=== PATIENT | female | born 1995 | race Caucasian/White ===

== ENCOUNTER 2020-08-27 15:42 | Observation (INO) ==
--- NOTE | 2020-08-27 16:27 | History & Physical Report ---
Date of Service August 27, 2020 Assessment & Plan (1) Vaginal bleeding in : (2) 30 weeks gestation of : no active bleeding noted but did have episode, ? etiology. so far no evidence of labor. placentation normal on ernie us. possible chronic abruption? rec monitoring at least up to 4hr to watch bleeding and baby. po hydrate. reviewed with her possible causes, will rec growth us with next visit. rh pos. cont evaluation. 20 min at bedside in exam and discussion of finding and plan. History of Present Illness Chief Complaint: vaginal bleeding Primary Care Provider: Nallely Ji MD 25yo at 31 1/7wks emily presents to L&D from her work with onset of vaginal bleeding. Apparently she was at work and went to BR and that's when she noticed her pantyliner with bright red blood. Called and advised to come in. New pad on arrival with 50cent size bright red blood spot. She denies pain or rom. +FM. She denies trauma to her abdomen, urinary sx or constipation. She is sure it is vaginal. No recent intercourse. RH pos. Was seen on 08/25 with similar sx and evaluated in L&D, no blood seen in vault. That was onset also of painless vaginal bleeding. She did have ernie us with us and placenta was anterior. PNC c/b 1. anxiety/depression on zoloft PNL RH pos, [place] Allergies Allergy/AdvReac Type Severity Reaction Status Date / Time No Known Allergies Allergy Verified 08/25/20 10:02 Home Medications Home Medications Medication Instructions Recorded Confirmed Type prenat.vits,wesley,toh-evux-bnjna 1 tab PO DAILY 05/08/19 08/25/20 History sertraline 50 mg tablet 50 mg PO DAILY #90 tab 03/10/20 08/25/20 Rx simethicone 125 mg capsule 125 mg PO DAILY PRN 07/15/20 08/25/20 History diphenhydramine HCl 25 mg PO HS PRN 08/25/20 08/25/20 History Patient History Medical History (Updated 08/27/20 @ 16:25 by Susan Huynh MD, FACOG) Abnormal uterine bleeding (AUB) Acid reflux disease Anxiety Depression Exposure to COVID-19 virus Hx of varicella Insomnia Migraine Surgical History H/O myringotomy Family History Mother Diabetes Father ADHD Brother ADHD Brother No problems noted. 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 no vaginal itching or abnormal discharge prior to this bleeding. Physical Exam Constitutional: WD/WN, vitals as above Gastrointestinal (Abdomen): Percussion/Palpation: abdomen soft (gravid); abdomen nontender Neurologic: grossly normal Psychiatric: A+Ox3, euthymic affect Genitourinary: Manual OB Exam: + cervical dilation (visually closed, palpably closed. ), + cervical effacement (long) and + station high OB Exam Monitor Tracing: + external FHT monitor used (120 mod variability, reactive. ), + external uterine monitor used (no ctx), + category I and + normal FHT variability SSE no active bleeding, cx visually closed. maroon blood in vault with mucus. Results & Data ([facility]) Vital Signs (Past 12 Hours) Vital Signs Pulse BP 08/27/20 15:48 88 123/73 Coding Level of Care Code None Diagnoses Vaginal bleeding in O46.90 30 weeks gestation of Z3A.30 Comment will plan billing with next note.
[2020-08-27 17:26] LABS: Basophils # (auto) 0.01 K/uL (0-0.2); Basophils % (auto) 0.1 %; Eosinophils # (auto) 0.06 K/uL (0-0.5); Eosinophils % (auto) 0.6 %; Hematocrit (blood only) 32.9 % (37-47); Hemoglobin 11.1 g/dL (12.0-16.0); Immature Granulocytes # (auto) 0.15 K/uL (0.00-0.02); Immature Granulocytes % (auto) 1.5 %; Lymphocytes # (auto) 1.32 K/uL (1.2-3.4); Mean Corpuscular Hemoglobin 31.3 pg (25-34); Mean Corpuscular Hgb Conc 33.7 g/dL (32-36); Mean Corpuscular Volume 92.7 fL (80-100); Mean Platelet Volume 11.3 fL (7.4-10.4); Monocytes # (auto) 0.63 K/uL (0.11-0.59); Monocytes % (auto) 6.2 %; Neutrophils # (auto) 7.95 K/uL (1.4-6.5); Neutrophils % (auto) 78.6 %; Platelet Count 186 K/uL (130-400); RDW Standard Deviation 43.7 fL (36.4-46.3); Red Blood Count 3.55 M/uL (4.2-5.4); White Blood Count 10.12 K/uL (4.8-10.8)
--- NOTE | 2020-08-27 19:04 | Obstetrical Progress Note ---
Date of Service August 27, 2020 Assessment & Plan (1) Vaginal bleeding in : (2) 30 weeks gestation of : no ongoing bleeding. ? chronic abruption. rec u/s and visit, set up for tuesday in office. pelvic rest. etiology uncertain. must return if bleeding worsens. offered to keep in house longer for observation but pt feels bleeding has slowed. will keep for full 4hr and if situation remains same will plan d/c home. nst reactive. additional 10min by bedside. Subjective pt denies ongoing active bleeding, denies pain. feels hungry. Review of Systems Review of Systems: no rom. +FM Physical Exam Constitutional: WD/WN, vitals as above Genitourinary: OB Exam Monitor Tracing: + external FHT monitor used (120 mod variability), + external uterine monitor used (none), + category I and + normal FHT variability reactive Results & Data ([facility]) Vital Signs (Past 12 Hours) Vital Signs Temp Pulse Resp BP 08/27/20 18:30 18 08/27/20 17:41 75 116/67 08/27/20 17:20 88 123/73 08/27/20 15:48 88 123/73 08/27/20 15:46 99.3 F 20 PG Care Time/CCT Total # of Minutes Spent Total Time Spent with Patient: Total time spent is greater than 50% in coordination of care (as documented) at patient's floor/unit and/or counseling patient: Coding Level of Care Code None Diagnoses Vaginal bleeding in O46.90 30 weeks gestation of Z3A.30
[2020-08-27] MEDS ORDERED: ACETAMINOPHEN 325 MG TAB PO PRN (20:46)
[2020-08-27] MEDS ORDERED: SERTRALINE HCL 50 MG TABLET PO ONE (20:46)
--- NOTE | 2020-08-27 20:46 | Obstetrical Progress Note ---
Date of Service August 27, 2020 Assessment & Plan (1) 30 weeks gestation of : (2) Vaginal bleeding in : given repeat episode of bright red bleeding, rec pt stay longer for observation. discussed possible need for mfm consult and discussed possible discussion of steroids. at this point still suspect chronic abruption but just unclear if bleeding will improve or worsen so will watch here overnight. fhts categ 1. no labor. pt questions answered. 45min spent at bedside for last 3 checks. please refer to all notes for evaluation. Subjective notified by nursing that pt did have slowed bleeding that was dark/brown but t hen when up off monitor to go home, had episode of quarter sized red bleeding. no pain. no rom. +FM Review of Systems Review of Systems: per hpi Physical Exam Constitutional: WD/WN, vitals as above Neurologic: grossly normal Psychiatric: A+Ox3, euthymic affect Genitourinary: OB Exam Monitor Tracing: + external FHT monitor used (130 mod variability), + external uterine monitor used (no ctx), + category I and + normal FHT variability Results & Data ([facility]) Vital Signs (Past 12 Hours) Vital Signs Temp Pulse Resp BP 08/27/20 19:01 97.7 F 78 18 112/60 08/27/20 18:30 18 08/27/20 17:41 75 116/67 08/27/20 17:20 88 123/73 08/27/20 15:48 88 123/73 08/27/20 15:46 99.3 F 20 PG Care Time/CCT Total # of Minutes Spent Total Time Spent with Patient: Total time spent is greater than 50% in coordination of care (as documented) at patient's floor/unit and/or counseling patient: Now total time today spent at bedside is 45min Coding Level of Care Code 37456 OBS Care - Level 3 Diagnoses 30 weeks gestation of Z3A.30 Vaginal bleeding in O46.90 CPT Codes Misx Procedure Codes - 44802 NST: 36675 NST ([id number]) 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
--- NOTE | 2020-08-28 07:37 | Obstetrical Progress Note ---
Date of Service August 28, 2020 Assessment & Plan (1) Vaginal bleeding in : (2) 30 weeks gestation of : no further excessive bleeding, some streaking. no evidence of rom, vb. +fm. discussed with pt findings overnight not progressing. rec d/c home and followup in office later today for u/s and md visit. she is agreeable. nst reactive. Admission and Anticipated Discharge Date Admission Date: August 27, 2020 Subjective pt awake this am and working on her computer. slept ok. did not see any increased bleeding. if she wipes when up to BR may see red blood on tp but otherwise brown discharge. no pain. +FM. no ctx. no rom. Review of Systems Review of Systems: per hpi Physical Exam Constitutional: WD/WN, vitals as above Neurologic: grossly normal Psychiatric: A+Ox3, euthymic affect Genitourinary: OB Exam Monitor Tracing: + external FHT monitor used (130 mod variability ), + external uterine monitor used (no ctx), + category I and + normal FHT variability Results & Data ([facility]) Vital Signs (Past 12 Hours) Vital Signs Temp Pulse Resp BP 08/28/20 03:02 98.2 F 81 16 113/56 L 08/27/20 23:03 98.1 F 81 18 102/61 PG Care Time/CCT Total # of Minutes Spent Total Time Spent with Patient: Total time spent is greater than 50% in coordination of care (as documented) at patient's floor/unit and/or counseling patient: Coding Level of Care Code 50218 OBS Care - Discharge Diagnoses Vaginal bleeding in O46.90 30 weeks gestation of Z3A.30 CPT Codes Misx Procedure Codes - 79230 NST: 95105 NST ([id number]) 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
--- NOTE | 2020-08-29 22:05 | Discharge Summary ---
Date of Service Day of admission for observation: August 27, 2020 Day of discharge from observation: August 28, 2020 Admission HPI Per Admitting Provider 25yo at 31 1/7wks emily presents to L&D from her work with onset of vaginal bleeding. Apparently she was at work and went to [place] and that's when she noticed her pantyliner with bright red blood. Called and advised to come in. New pad on arrival with 50 cent size bright red blood spot. She denies pain or rom. +FM. She denies trauma to her abdomen, urinary sx or constipation. She is sure it is vaginal. No recent intercourse. RH pos. Was seen on 08/25 with similar sx and evaluated in L&D, no blood seen in vault. That was onset also of painless vaginal bleeding. She did have anatomy u/s and placenta was anterior. PNC c/b 1. anxiety/depression on zoloft PNL RH pos, [place] Hospital Course (1) 30 weeks gestation of : (2) Vaginal bleeding in : The patient was kept as outpatient for evaluation where no definitive etiology of the bleeding was noted. No evidence of labor or rupture of membranes. heart tones were categ 1. Working diagnosis was likely chronic abruption. At the point patient's bleeding had slowed and was watched for about 4hr, she went to bathroom, and had return of bright red bleeding. At that point felt prudent to monitor patient longer and was kept as observation patient. Overnight monitor showed category 1 status. There were no contractions. The bleeding slowed again and by morning only saw some pink/red with wiping but none on pad. Given no worsening symptoms was stable to discharge home with plan for followup in the office that day for growth u/s. Patient and partner agreeable. Advised on restrictions which was no intercourse/pelvic rest. Otherwise unrestricted. Call with worsening symptoms of bleeding or sign and symptoms of labor. Coding Level of Care Code None Diagnoses 30 weeks gestation of Z3A.30 Vaginal bleeding in O46.90
== END 2020-08-28 07:52 | disposition home or self-care (01) ==
LOC: OPB 15:42 → 4S1 15:42

== ENCOUNTER 2020-10-19 19:58 | Inpatient (IN) ==
[2020-10-19] MEDS ORDERED: OXYTOCIN 30 UNITS/500 ML BAG IV PRN ×2 (21:30→21:41)
[2020-10-19] MEDS: LACTATED RINGER'S 1,000 ML IV PRN (21:34)
--- NOTE | 2020-10-19 21:40 | History & Physical Report ---
Date of Service October 19, 2020 Assessment & Plan (1) : 25 y/o G1 at 38 5/7 wga w/ PROM VSS Fetus cat 1 Labor - will augment with pit, defer cytotec given chronic abruption GBS neg Epidural PRN History of Present Illness Chief Complaint: LOF Primary Care Provider: Nallely Ji MD 25 y/o G1 at 38 5/7 wga w/ FRED 10/28/20 by LMP 01/22/20 c/w 1st tri US presents w/ c/o LOF since this evening. Was in the bathroom and noticed mucous plug fell out, subsequently had large gush of fluid upon standing and has continued leaking since. 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: G1 Menarche 14 Cycles q28 days last pap 12/2018 wnl, no hx abnls no hx STI Allergies Allergy/AdvReac Type Severity Reaction Status Date / Time No Known Allergies Allergy Verified 10/16/20 16:14 Home Medications Medication Instructions Recorded Confirmed Type prenat.vits,wesley,pyd-cjgi-[id number] 1 tab PO DAILY 05/08/19 10/19/20 History sertraline 50 mg tablet 50 mg PO DAILY #90 tab 09/03/20 10/19/20 Rx breast pump #1 ea 09/18/20 10/16/20 Rx breast pump #1 ea 09/18/20 10/16/20 Rx Patient History Medical History (Updated 09/11/20 @ 16:19 by Patricia Carlson MD, FACOG) Abnormal uterine bleeding (AUB) Acid reflux disease Anxiety Depression Exposure to COVID-19 virus Hx of varicella Insomnia Migraine Surgical History H/O myringotomy Family History Mother Diabetes Father ADHD Brother ADHD Brother No problems noted. Denies family history of Ovarian cancer Prostate cancer Myocardial infarction Breast cancer Colorectal cancer Social History Smoking Status: Never smoker Second Hand Exposure: Yes; Hx Alcohol Use: No Hx Substance Use: No Preferred Language: [place] Communication Ability: Effective Visual Impairment: No Limitations Hearing Ability: Normal Student Support Services Director Required: No Beliefs That Will Affect Care: None marital status: marital status details: Mason Schwartz (26) [phone] Current Living Situation: Spouse Current Living Situation Comment: lives with spouse, a cousin lives with them, 4 dogs, 2 cats, no litter 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 Other Information That Helps Us Care for You: No Feels Safe at Home: Yes Safety Concerns: Feels Safe At This Time Childhood Exposure to Second-Hand Smoke: Yes Dental Care, Regularly: Yes Physical Activity Frequency: 3-4 Times per Week Seatbelt Use: always Sunscreen Use: Yes Assistive Devices: None Physical Exam Constitutional: WD/WN, vitals as above no acute distress Respiratory: normal respiratory effort; no respiratory distress and no labored breathing Genitourinary: OB Exam Abdomen: + vertex (by suture confirmed by BSUS) and + estimated weight (7-7.5) Manual OB Exam: + cervical dilation 1 cm, + cervical effacement 70%, + station high and + amniotic fluid (grossly ruptured, +nitrazine by nursing, +pooling) OB Exam Monitor Tracing: + external FHT monitor used, + external uterine monitor used (q5-6min) and + category I (130/mod/+accel/-decel) Results & Data ([facility]) Vital Signs (Past 12 Hours) Vital Signs Temp Pulse Resp BP 10/19/20 20:19 99.0 F 117 H 18 122/79 10/19/20 20:14 99.0 F 18 Laboratory Results OB Labs: Blood Type AB Positive 03/19/20 Antibody Screen NEGATIVE 03/19/20 Hemoglobin 11.1 g/dL (12.0-16.0) L 08/27/20 Hematocrit 32.9 % (37-47) L 08/27/20 Mean Corpuscular Volume 92.7 fL (80-100) 08/27/20 Platelet Count 186 K/uL (130-400) 08/27/20 Rubella IgG Antibody Immune (Immune) 03/19/20 Rapid Plasma Reagin Nonreactive (Nonreactive) 03/19/20 Hepatitis B Surface Antigen Neg (Neg) 03/19/20 HIV (1&2) Ab and P24 Ag, 4th Gener Neg (Neg) 03/19/20 Glucose 1 Hour 50 gm Load 111 mg/dl (70-130) 08/06/20 OB Optional Labs: Chlamydia trachomatis RNA NOT DETECTED (NOT DETECTED) 03/19/20 Neisseria gonorrhoeae RNA NOT DETECTED (NOT DETECTED) 03/19/20 Thyroid Stimulating Hormone (TSH) 1.120 uIu/ml (0.300-4.500) 10/12/19 Labs Reviewed: low risk panorama declined afp/cf/sma GBS neg COVID neg 10/16 Anterior plac Code Status & VTE Plan VTE Prophylaxis Plan VTE Prophylaxis will be ordered: Yes Coding Level of Care Code None Diagnoses Z34.90
[2020-10-19 21:55] LABS: Hematocrit (blood only) 32.4 % (37-47); Mean Corpuscular Hemoglobin 30.4 pg (25-34); Mean Corpuscular Volume 89.5 fL (80-100); Mean Platelet Volume 11.2 fL (7.4-10.4); Platelet Count 202 K/uL (130-400); RDW Coefficient of Variation 13.5 % (11.5-14.5); Red Blood Count 3.62 M/uL (4.2-5.4); White Blood Count 10.22 K/uL (4.8-10.8)
[2020-10-19] MEDS: CALCIUM CARBONATE 500 MG CHEWABLE TAB PO PRN (22:08)
[2020-10-19] MEDS: SERTRALINE HCL 50 MG TABLET PO SCH ×2 (22:45→22:48)
[2020-10-19] MEDS ORDERED: BUTORPHANOL TARTRATE 1 MG/ML VIAL IV STA (23:54)
[2020-10-20] MEDS ORDERED: BUTORPHANOL TARTRATE 1 MG/ML VIAL ONE (00:05)
[2020-10-20] MEDS ORDERED: SODIUM CHLORIDE 0.9% INJ 10 ML VIAL ONE (02:00)
[2020-10-20] MEDS ORDERED: ePHEDrine sulfate 50 MG/ML AMP ONE (02:00)
[2020-10-20] MEDS ORDERED: BUPIVACAINE 0.25% 30 ML VIAL ONE (02:00)
[2020-10-20] MEDS ORDERED: fentaNYL citrate 100 MCG/2 ML VIAL ONE (02:00)
[2020-10-20] MEDS ORDERED: fentaNYL 2MCG/ML ROPIVACAINE 1.25MG/ML 100 ML BAG EPI ONE (02:01)
[2020-10-20] MEDS ORDERED: ePHEDrine sulfate 50 MG/ML AMP IV PRN (02:22)
[2020-10-20] MEDS ORDERED: fentaNYL 2MCG/ML ROPIVACAINE 1.25MG/ML 100 ML BAG EPI PRN (02:22)
[2020-10-20] MEDS ORDERED: NALOXONE HCL 1 MG in SODIUM CHLORIDE 0.9% 1000ML 1,000 ML IV PRN (02:22)
[2020-10-20] MEDS ORDERED: NALOXONE HCL 0.4 MG/1 ML VIAL/CARP IV PRN (02:22)
[2020-10-20] MEDS ORDERED: ONDANSETRON INJ 2 MG/ML 2 ML VIAL IV PRN (02:22)
[2020-10-20] MEDS ORDERED: diphenhydrAMINE 50 MG/ML VIAL IV PRN (02:22)
[2020-10-20] MEDS: LACTATED RINGER'S 1,000 ML IV PRN ×2 (02:23→07:13)
--- NOTE | 2020-10-20 02:25 | Anesthesiology Consultation ---
Date of Service October 20, 2020 Covid 19 negative on 10/16/20. Assessment & Plan Chart Review Chart Review: Patient NOT seen in Pre Admission Testing and Acceptable Risk for Labor Epidural Consults Requested none ASA ASA2 Proposed Anesthesia Anesthesia Type: Labor Epidural and CSE Risk / Benefits Reviewed With: PT / POA / Parent / Guardian, Accepts Plan and Informed Consent Obtained History Height/Weight Height: 5 ft 7 in Weight: 91.172 kg Allergies Allergy/AdvReac Type Severity Reaction Status Date / Time No Known Allergies Allergy Verified 10/16/20 16:14 Medications Home Medications Medication Instructions Recorded Confirmed Last Taken prenat.vits,wesley,yfh-rjji-yosrn 1 tab PO DAILY 05/08/19 10/19/20 10/18/20 sertraline 50 mg tablet 50 mg PO DAILY #90 tab 09/03/20 10/19/20 10/18/20 breast pump #1 ea 09/18/20 10/16/20 Unknown breast pump #1 ea 09/18/20 10/16/20 Unknown Active Medications Generic Name Dose Route Start Last Admin Trade Name Freq PRN Reason Stop Dose Admin Calcium Carbonate 1,500 mg 10/19/20 21:40 10/19/20 22:08 Calcium Carbonate 500 Mg Chewable Tab PO 11/18/20 21:39 1,500 mg Q8 PRN Administration Indigestion Lactated Ringer's 1,000 mls @ 125 mls/hr 10/19/20 21:30 10/20/20 02:23 Lr IV 10/21/20 21:29 999 mls/hr .Q8H PRN Administration L&D Protocol Protocol Oxytocin 30 units in 500 mls @ 13 mls/hr 10/19/20 21:41 10/20/20 01:15 Pitocin IV 10/21/20 21:40 0.78 units/hr .Q24H PRN 13 mls/hr Labor Induction/Augmentation Titration Protocol 0.78 UNITS/HR Sertraline HCl 50 mg 10/20/20 21:00 10/19/20 22:48 Sertraline Hcl 50 Mg Tablet PO 11/19/20 20:59 50 mg QPM MICHELLE Administration NPO Date Last Intake of Fluids: 10/20/20 Time Last Intake of Fluids: 01:00 Date Last Intake of Solids: 10/19/20 Time Last Intake of Solids: 19:00 Past Medical History Medical History Abnormal uterine bleeding (AUB) Acid reflux disease Anxiety Depression Exposure to COVID-19 virus Hx of varicella Insomnia Migraine Exercise / Class Metabolic Activity II 4-5 Yardwork/Stairs/Walk up hill Past Family History Family History Mother Diabetes Father ADHD Brother ADHD Brother No problems noted. Denies family history of Ovarian cancer Prostate cancer Myocardial infarction Breast cancer Colorectal cancer Past Surgical History Surgical History H/O myringotomy Past Anesthesia History No Hx of Anesthesia Complications and No Family Hx of Anesthesia Complications History of PONV No Hx of PONV and No Hx of Motion Sickness Social History Smoking Status: Never smoker Hx Alcohol Use: No Hx Substance Use: No Review of Systems no chest pain or sob Physical Exam Vital Signs Last Vital Signs Temp 37.0 C 10/19/20 22:00 Pulse 88 10/20/20 02:21 Resp 18 10/19/20 20:19 BP 127/79 10/20/20 02:21 Pulse Ox 100 10/20/20 02:20 ENMT Mouth: no TMJ abnormality Thyromental Distance: > or= 3.5 Finger Breadths Mallampati Class: II Neck normal visual inspection Respiratory normal respiratory effort Auscultation: lungs clear to auscultation bilaterally Cardiovascular Rate/Rhythm: regular rate and regular rhythm Musculoskeletal Spine: normal cervical ROM Neurologic moves all extremities Psychiatric Orientation: alert and oriented x 3 Testing Laboratory Results 10/19/20 21:46 Blood Type AB Positive 10/19/20 21:46 Antibody Screen NEGATIVE 10/19/20 21:46
[2020-10-20] MEDS: CALCIUM CARBONATE 500 MG CHEWABLE TAB PO PRN (04:51)
[2020-10-20] MEDS ORDERED: ceFAZolin SPECIAL PROCEDURE STOCK 1 GM ADDVIAL IV ONE (06:19)
[2020-10-20] MEDS ORDERED: ceFAZolin 2000MG 2,000 MG/15 ML SYR IV ONE (06:30)
[2020-10-20] MEDS ORDERED: DIPHTHERIA/TETANUS/PERTUSSIS 0.5 ML SYR/VIAL IM ONE (06:46)
[2020-10-20] MEDS ORDERED: OXYTOCIN 30 UNITS/500 ML BAG IV PRN (06:46)
[2020-10-20] MEDS ORDERED: BENZOCAINE 20% AER SPR 82.5 GM CAN EXT PRN (06:46)
[2020-10-20] MEDS ORDERED: SUPERCREAM 0.870% 15 GM JAR EXT PRN (06:46)
[2020-10-20] MEDS ORDERED: HYDROCORTISONE ACETATE 25 MG SUPP PR PRN (06:46)
[2020-10-20] MEDS ORDERED: bisacodyL 10 MG SUPP PR PRN (06:46)
[2020-10-20] MEDS ORDERED: ceFAZolin 2000MG 2,000 MG/15 ML SYR IV SCH (07:00)
--- NOTE | 2020-10-20 08:07 | Delivery Summary ---
Vaginal Delivery Summary Date of Service October 20, 2020 Vaginal Delivery Summary PREOPERATIVE DIAGNOSIS: 1. Single intrauterine at 38 6/7 weeks gestation 2. Prelabor rupture of membranes 3. Chronic abruption 4. Depression/anxiety POSTOPERATIVE DIAGNOSIS: 1. Single intrauterine at 38 6/7 weeks gestation 2. Prelabor rupture of membranes 3. Chronic abruption 4. Depression/anxiety 5. Delivered PROCEDURE: 1. Normal spontaneous vaginal delivery. 2. Manual removal of placenta SURGEON: Homa Shelton MD ANESTHESIA: Epidural. ESTIMATED BLOOD LOSS: 300 mL FLUIDS: Continuous LR. URINE OUTPUT: None. COMPLICATIONS: None. CONDITION: Stable. INDICATIONS: 25 y/o G1 at 38 6/7 wga w/ FRED 10/28/20 presented with SROM. has been complicated by chronic abruption for which she had been receiving very reassuring testing. Pitocin was initiated for augmentation. She received an epidural for pain control. She then progressed to complete, complete, +2 station and desired to push. FINDINGS: A viable male , weight pending, with Apgars of 8 and 9 at 1 and 5 minutes respectively. SPECIMEN: Placenta OPERATIVE REPORT: The patient progressed to 10 cm, 100% effaced and +2 station, pushed over intact perineum with anesthesia to deliver a viable male , Apgars as above. Head of delivered in PIERO position. Loose nuchal cord was present and delivered through. Body and shoulders were delivered without difficulty. was delivered to nursing staff due to pt emesis. Delayed cord clamping was performed for 60 seconds. Cord was clamped and cut. Placenta was placed on gentle traction and fundal massage was also performed, however did not deliver within anticipated second stage. Placenta was then manually removed due to non-deliverance and it appeared to be removed intact and in its entirety. IV oxytocin and fundal massage were given for excellent hemostasis. Vagina, cervix, perineum, and placenta were inspected. A second degree and R labial lacerations were noted and repaired in the usual fashion using 3-0 and 4-0 vicryl respectively. There was excellent hemostasis. Sponge and needle counts correct x2. No sponges were left behind. Mother and stable in immediate period. Ancef x 1 was given due to manual extraction. [facility] Vaginal Delivery Charge Vaginal Delivery Codes: 43929 global code for the antepartum, delivery, and post-
--- NOTE | 2020-10-20 08:31 | Anesthesia Procedure Note ---
Date of Service October 20, 2020 Anesthesia Post Epidural Note Vital Signs Vital Signs: Temp Pulse Resp BP Pulse Ox 37.1 C 96 H 20 151/83 H 98 10/20/20 07:15 10/20/20 08:17 10/20/20 08:00 10/20/20 08:17 10/20/20 05:36 Notes Mental Status: alert / awake / arousable Nausea / Vomiting: adequately controlled Pain: adequately controlled Airway Patency, RR, SpO2: stable & adequate BP & HR: stable & adequate Hydration State: stable & adequate Neuraxial Anesthesia: was administered and sensory block is resolving Anesthetic Complications: no major complications apparent Epidural: Removed without complications and With tip intact
[2020-10-20] MEDS: ACETAMINOPHEN 325 MG TAB PO PRN ×2 (09:05→19:21)
[2020-10-20] MEDS: PRENATAL VITAMIN 1 TAB PO SCH (09:06)
[2020-10-20] MEDS: FERROUS SULFATE 325 MG TAB PO SCH (09:06)
[2020-10-20] MEDS: DOCUSATE SODIUM 100 MG CAP PO SCH ×2 (09:06→20:07)
[2020-10-20] MEDS: IBUPROFEN 600 MG TAB PO PRN (16:37)
[2020-10-20] MEDS: SERTRALINE HCL 50 MG TABLET PO SCH (20:07)
[2020-10-21] MEDS: IBUPROFEN 600 MG TAB PO PRN ×3 (03:12→20:05)
--- NOTE | 2020-10-21 05:50 | Obstetrical Progress Note ---
Date of Service <Kayden Winchester MD - Last Filed: 10/21/20 07:16> October 21, 2020 Assessment & Plan <Kayden Winchester MD - Last Filed: 10/21/20 07:16> (1) state: 25 y/o PPD1 s/p . AB+. Rubella immune. Stable. - Meeting milestones. Is ambulating, voiding, passing flatus, and tolerating regular diet. No BM yet. - vitals wnl - continue routine care - tentative dispo this evening vs tomorrow AM (2) Placental abruption in third trimester: - s/p manual removal of placenta during delivery - hb 11.0->8.6 10/19 vs today - lochia moderate - check AM CBC Subjective <Kayden Winchester MD - Last Filed: 10/21/20 07:16> Ambulation: ambulating normally Voiding: no voiding problems Passing Gas:: Yes Diet Tolerance:: regular diet Lochia:: Moderate Feeding Type:: breast feeding Current Pain Level(1-10): 4 Doing well. Has 4/10 lower abd pain, Motrin helps. Is , but is unsure about youth counselor regarding pain/discomfort while . Review of Systems Denies fever, chills, sweats Denies shortness of breath, chest pain. Denies dysuria. Denies headache or changes in vision. Denies nausea/vomiting. Denies numbness, tingling, weakness. Physical Exam <Kayden Winchester MD - Last Filed: 10/21/20 07:16> General: Alert, oriented. No acute distress. Cardiac: Regular rate and rhythm, no murmurs/rubs/gallops. Respiratory: Clear to auscultation bilaterally, no wheezes/rales/rhonchi. No respiratory distress. Abdomen: , soft. Mild tenderness left lower quadrant where uterus is. Uterus: Uterine fundus firm, palpable to left of umbilicus. Lower Extremities: No lower extremity edema or swelling. No deep calf pain. Jose's negative bilaterally. Results & Data ([facility]) <Kayden Winchester MD - Last Filed: 10/21/20 07:16> Vital Signs (Past 12 Hours) Vital Signs Temp Pulse Pulse Resp BP Pulse Ox 10/21/20 03:30 36.8 C 83 17 117/78 99 10/20/20 23:10 37.0 C 79 16 116/71 95 10/20/20 19:10 36.8 C 78 16 119/72 99 Medications Administered <Nancy Brennan DO - Last Filed: 10/21/20 08:07> Co-Signing Physician Notes Resident Physician Supervision Note: I was present with Dr. Winchester during the history and exam. I discussed the case with the resident and agree with the findings and plan as documented in the note. Any exceptions or clarifications are listed here: PPD#1 doing well. Anticipate DC home tomorrow. Documented By: Nancy Brennan DO
[2020-10-21 06:33] LABS: Hematocrit (blood only) 26.5 % (37-47); Hemoglobin 8.6 g/dL (12.0-16.0); Mean Corpuscular Hemoglobin 29.7 pg (25-34); Mean Corpuscular Hgb Conc 32.5 g/dL (32-36); Mean Corpuscular Volume 91.4 fL (80-100); Platelet Count 186 K/uL (130-400); RDW Standard Deviation 46.2 fL (36.4-46.3); White Blood Count 11.27 K/uL (4.8-10.8)
[2020-10-21] MEDS: DOCUSATE SODIUM 100 MG CAP PO SCH ×2 (08:48→21:10)
[2020-10-21] MEDS: PRENATAL VITAMIN 1 TAB PO SCH (08:49)
[2020-10-21] MEDS: FERROUS SULFATE 325 MG TAB PO SCH (08:49)
[2020-10-21] MEDS ORDERED: bisacodyL 5 MG TABEC PO SCH (20:00)
[2020-10-21] MEDS: SERTRALINE HCL 50 MG TABLET PO SCH (21:12)
[2020-10-21] MEDS: ACETAMINOPHEN 325 MG TAB PO PRN (23:26)
[2020-10-22] MEDS: IBUPROFEN 600 MG TAB PO PRN (06:12)
--- NOTE | 2020-10-22 06:57 | Obstetrical Progress Note ---
Date of Service <Kayden Winchester MD - Last Filed: 10/22/20 07:19> October 22, 2020 Assessment & Plan <Kayden Winchester MD - Last Filed: 10/22/20 07:19> (1) state: 25 y/o PPD2 s/p . AB+. Rubella immune. Stable. - Meeting milestones. Is ambulating, voiding, passing flatus, and tolerating regular diet. passed BM yesterday - continue routine care - dispo today (2) Placental abruption in third trimester: - s/p manual removal of placenta during delivery - hb 11.0->8.6 10/19 vs yesterday - lochia small, improved today per patient - will prescribe PO iron daily upon d/c Subjective <Kayden Winchester MD - Last Filed: 10/22/20 07:19> Ambulation: ambulating normally Voiding: no voiding problems Passing Gas:: Yes Diet Tolerance:: regular diet Lochia:: Small Feeding Type:: bottle feeding Current Pain Level(1-10): 2 Mild headache. Lower abd discomfort is mild 2/10. Doing well and feels comfortable w/ d/c home today. Review of Systems Denies fever, chills, sweats Denies shortness of breath, chest pain, palpitations. Denies breast pain. Denies dysuria. Denies nausea/vomiting. Denies numbness, tingling, weakness. Physical Exam <Kayden Winchester MD - Last Filed: 10/22/20 07:19> General: Alert, oriented. No acute distress. Cardiac: Regular rate and rhythm, no murmurs/rubs/gallops. Respiratory: Clear to auscultation bilaterally, no wheezes/rales/rhonchi. No respiratory distress. Abdomen: , soft, nontender. Uterus: See attending exam. Lower Extremities: No lower extremity edema or swelling. No deep calf pain. Jose's negative bilaterally. Results & Data ([facility]) <Kayden Winchester MD - Last Filed: 10/22/20 07:19> Vital Signs (Past 12 Hours) Vital Signs Temp Pulse Resp BP 10/21/20 23:15 37.0 C 94 H 18 118/79 10/21/20 22:22 85 124/80 10/21/20 19:55 37.0 C 93 H 18 145/90 H Medications Administered <Wilian Rondon Jr, MD, FACOG - Last Filed: 10/22/20 07:31> Co-Signing Physician Notes Resident Physician Supervision Note: I was present with Dr. Winchester during the history and exam. I discussed the case with the resident and agree with the findings and plan as documented in the note. Any exceptions or clarifications are listed here: Hgb stable, pt desires d/c. Will take po Fe in addition to PNV. D/C instructions given, f/u in 6 weeks for pp check Documented By: Wilian Rondon Jr, MD, FACOG
[2020-10-22] MEDS: FERROUS SULFATE 325 MG TAB PO SCH (08:20)
[2020-10-22] MEDS: DOCUSATE SODIUM 100 MG CAP PO SCH (08:20)
[2020-10-22] MEDS: PRENATAL VITAMIN 1 TAB PO SCH (08:20)
== END 2020-10-22 10:50 | disposition home or self-care (01) | DRG 807 ==
LOC: OPB 19:58 → 4S1 19:59 → 4S2 10-20 09:28

== ENCOUNTER 2022-05-09 14:00 | Inpatient (IN) ==
[2022-05-09] MEDS ORDERED: OXYTOCIN 30 UNITS/500 ML BAG IV PRN ×2 (17:00→20:55)
[2022-05-09] MEDS: LACTATED RINGER'S 1,000 ML IV PRN ×2 (17:15→18:10)
[2022-05-09] MEDS ORDERED: ePHEDrine sulfate 50 MG/ML AMP ONE (17:20)
[2022-05-09] MEDS ORDERED: BUPIVACAINE 0.25% 30 ML VIAL ONE (17:21)
[2022-05-09] MEDS ORDERED: fentaNYL citrate 100 MCG/2 ML VIAL ONE (17:21)
[2022-05-09] MEDS ORDERED: SODIUM CHLORIDE 0.9% INJ 10 ML VIAL ONE (17:21)
[2022-05-09] MEDS ORDERED: fentaNYL 2MCG/ML ROPIVACAINE 1.25MG/ML 100 ML BAG EPI ONE (17:22)
--- NOTE | 2022-05-09 17:32 | Anesthesiology Consultation ---
Date of Service May 09, 2022 Assessment & Plan (1) Encounter for pre-operative examination: Chart Review Chart Review: Acceptable Risk for Labor Epidural History Height/Weight Height: 5 ft 8 in Weight: 91.172 kg Allergies Allergy/AdvReac Type Severity Reaction Status Date / Time No Known Allergies Allergy Verified 05/06/22 16:01 Medications Home Medications Medication Instructions Recorded Confirmed Last Taken prenat.vits,wesley,lmv-[id number] 1 tab PO DAILY 09/16/21 05/09/22 1 Day Ago ~05/08/22 diphenhydramine HCl 50 mg capsule 50 mg PO HS PRN #20 cap 11/19/21 05/09/22 1 Day Ago ([facility]) ~05/08/22 sertraline 50 mg tablet 50 mg PO DAILY #90 tab 03/17/22 05/09/22 1 Day Ago ~05/08/22 Past Medical History Medical History 30 weeks gestation of Abnormal uterine bleeding (AUB) Acid reflux disease Exposure to COVID-19 virus Hx of varicella Insomnia Migraine Placental abruption in third trimester Vaginal bleeding in Past Family History Family History Mother Diabetes Father ADHD Brother ADHD Brother No problems noted. Son No problems noted. Denies family history of Ovarian cancer Prostate cancer Myocardial infarction Breast cancer Colorectal cancer Past Surgical History Surgical History H/O myringotomy Social History Smoking Status: Never smoker Hx Alcohol Use: No Hx Substance Use: No Physical Exam Vital Signs Last Vital Signs Pulse 80 05/09/22 17:27 BP 128/79 05/09/22 17:27
[2022-05-09 17:49] LABS: Hematocrit (blood only) 31.9 % (37-47); Hemoglobin 10.1 g/dL (12.0-16.0); Mean Corpuscular Hemoglobin 26.2 pg (25-34); Mean Corpuscular Volume 82.6 fL (80-100); Mean Platelet Volume 10.4 fL (7.4-10.4); Platelet Count 228 K/uL (130-400); RDW Coefficient of Variation 15.3 % (11.5-14.5); RDW Standard Deviation 45.5 fL (36.4-46.3); Red Blood Count 3.86 M/uL (4.2-5.4); White Blood Count 9.96 K/uL (4.8-10.8)
[2022-05-09 17:50] LABS: Mean Corpuscular Hgb Conc 31.7 g/dL (32-36)
[2022-05-09] MEDS ORDERED: ONDANSETRON INJ 2 MG/ML 2 ML VIAL IV PRN (18:33)
[2022-05-09] MEDS ORDERED: ePHEDrine sulfate 50 MG/ML AMP IV PRN (18:33)
[2022-05-09] MEDS ORDERED: NALOXONE HCL 0.4 MG/1 ML VIAL/CARP IV PRN (18:33)
[2022-05-09] MEDS ORDERED: fentaNYL 2MCG/ML ROPIVACAINE 1.25MG/ML 100 ML BAG EPI PRN (18:33)
[2022-05-09] MEDS ORDERED: NALOXONE HCL 1 MG in SODIUM CHLORIDE 0.9% 1000ML 1,000 ML IV PRN (18:33)
--- NOTE | 2022-05-09 20:38 | Delivery Summary ---
Vaginal Delivery Summary Date of Service May 09, 2022 Vaginal Delivery Summary Continuous vaginal delivery the patient arrived in active labor requested epidural artificial rupture of membranes and shortly after this she was fully dilated and pushed over 1 contraction delivering baby in occiput anterior position clear fluid no nuchal cord gentle traction the baby live vigorous male infant mouth and nares suctioned with bulb no excessive force was used first- degree tear repaired with 3-0 Vicryl placenta removed with gentle traction IV Pitocin started uterine tone improved estimated blood loss 150 mL sponge and instrument counts correct
[2022-05-09] MEDS ORDERED: ACETAMINOPHEN 325 MG TAB PO PRN (20:55)
[2022-05-09] MEDS ORDERED: DIPHTHERIA/TETANUS/PERTUSSIS 0.5 ML SYR/VIAL IM ONE (20:55)
[2022-05-09] MEDS ORDERED: bisacodyL 10 MG SUPP PR PRN (20:55)
[2022-05-09] MEDS ORDERED: HYDROCORTISONE ACETATE 25 MG SUPP PR PRN (20:55)
[2022-05-09] MEDS ORDERED: BENZOCAINE 20% AER SPR 82.5 GM CAN EXT PRN (20:55)
[2022-05-09] MEDS ORDERED: oxyCODONE/ACETAMINOPHEN 5mg/325mg TAB PO PRN (20:55)
--- NOTE | 2022-05-09 21:31 | Anesthesia Procedure Note ---
Date of Service May 09, 2022 Anesthesia Post Epidural Note Vital Signs Vital Signs: Temp Pulse Resp BP Pulse Ox 36.7 C 65 18 130/63 99 05/09/22 20:35 05/09/22 21:21 05/09/22 21:20 05/09/22 21:21 05/09/22 20:37 Pain Intensity Bilateral Abdomen: Pain Intensity: 0 Notes Mental Status: alert / awake / arousable and participated in evaluation Patient Amnestic to Procedure: No Nausea / Vomiting: adequately controlled Pain: adequately controlled Airway Patency, RR, SpO2: stable & adequate BP & HR: stable & adequate Hydration State: stable & adequate Neuraxial Anesthesia: was administered and sensory block is resolving Anesthetic Complications: no major complications apparent and Pt Satisfied with anesthetic care Epidural: Removed without complications and With tip intact
[2022-05-09] MEDS: DOCUSATE SODIUM 100 MG CAP PO SCH (21:44)
[2022-05-09] MEDS: IBUPROFEN 600 MG TAB PO PRN (21:57)
[2022-05-10] MEDS: IBUPROFEN 600 MG TAB PO PRN ×2 (05:34→14:46)
[2022-05-10 07:09] LABS: Hematocrit (blood only) 29.4 % (37-47); Hemoglobin 9.5 g/dL (12.0-16.0); Mean Corpuscular Hemoglobin 26.6 pg (25-34); Mean Corpuscular Hgb Conc 32.3 g/dL (32-36); Mean Corpuscular Volume 82.4 fL (80-100); Mean Platelet Volume 10.7 fL (7.4-10.4); Platelet Count 215 K/uL (130-400); RDW Coefficient of Variation 15.4 % (11.5-14.5); Red Blood Count 3.57 M/uL (4.2-5.4); White Blood Count 10.94 K/uL (4.8-10.8)
--- NOTE | 2022-05-10 07:11 | Obstetrical Progress Note ---
Date of Service May 10, 2022 Assessment & Plan (1) Encounter for supervision of normal in multigravida: PPD 0, cont current care Subjective Ambulation: ambulating normally Voiding: no voiding problems Diet Tolerance:: regular diet Lochia:: Small Results & Data ([facility]) Vital Signs (Past 12 Hours) Vital Signs Temp Pulse Pulse Resp BP BP Pulse Ox 05/10/22 05:23 97.7 F 68 16 127/74 98 05/10/22 00:29 97.9 F 70 16 124/75 98 05/09/22 22:51 81 110/67 05/09/22 22:36 114/73 05/09/22 22:35 81 18 110/67 05/09/22 22:21 126/78 05/09/22 22:06 56 L 131/76 05/09/22 22:05 56 L 18 131/76 05/09/22 21:51 77 130/84 05/09/22 21:36 74 128/63 05/09/22 21:35 77 18 05/09/22 21:21 65 130/63 05/09/22 21:20 65 18 130/63 05/09/22 21:06 71 128/57 L 05/09/22 21:05 65 18 05/09/22 20:51 77 121/57 L 05/09/22 20:50 65 18 130/63 05/09/22 20:37 86 99 05/09/22 20:36 84 116/57 L 90 05/09/22 20:35 98.1 F 65 18 130/63 05/09/22 20:32 83 99 05/09/22 20:29 96 H 153/95 H 05/09/22 20:27 103 H 87 L 05/09/22 20:22 100 H 100 05/09/22 20:17 75 100 05/09/22 20:16 86 88 L 05/09/22 20:14 90 130/79 05/09/22 20:12 71 100 05/09/22 20:07 85 100 05/09/22 20:02 87 100 05/09/22 20:00 18 05/09/22 19:59 72 126/91 05/09/22 19:57 77 100 05/09/22 19:55 98.1 F 05/09/22 19:52 79 100 05/09/22 19:50 98.1 F 18 05/09/22 19:47 83 100 05/09/22 19:45 70 108/58 L 05/09/22 19:42 79 100 05/09/22 19:37 76 100 05/09/22 19:32 73 100 05/09/22 19:30 18 05/09/22 19:29 69 102/59 L 05/09/22 19:27 71 100 05/09/22 19:22 75 100 05/09/22 19:17 83 100 05/09/22 19:14 71 109/65 05/09/22 19:12 73 100
[2022-05-10] MEDS ORDERED: Nursing to Pharmacy Communication SCH (07:30)
[2022-05-10] MEDS ORDERED: PRENATAL VITAMIN 1 TAB PO SCH (08:00)
[2022-05-10] MEDS: DOCUSATE SODIUM 100 MG CAP PO SCH ×2 (08:40→20:36)
[2022-05-10] MEDS ORDERED: SERTRALINE HCL 50 MG TABLET PO SCH ×2 (09:00→20:00)
[2022-05-10] MEDS ORDERED: bisacodyL 5 MG TABEC PO SCH (20:00)
== END 2022-05-10 22:22 | disposition home or self-care (01) | DRG 807 ==
LOC: OPB 14:00 → 4S1 14:01 → 4E2 23:00

== ENCOUNTER 2023-03-16 03:12 | Observation (INO) ==
[2023-03-16 03:37] LABS: Basophils # (auto) 0.05 K/uL (0-0.2); Basophils % (auto) 0.3 %; Eosinophils # (auto) 0.07 K/uL (0-0.50); Eosinophils % (auto) 0.5 %; Hematocrit (blood only) 40.5 % (37.0-47.0); Hemoglobin 13.6 g/dl (12.0-16.0); Immature Granulocytes # (auto) 0.05 K/uL (0.01-0.20); Immature Granulocytes % (auto) 0.3 %; Lymphocytes # (auto) 1.78 K/uL (1.2-3.4); Lymphocytes % (auto) 12.2 %; Mean Corpuscular Hemoglobin 29.6 pg (25.0-34.0); Mean Corpuscular Hgb Conc 33.6 g/dL (32.0-36.0); Mean Corpuscular Volume 88.2 fL (80.0-100.0); Mean Platelet Volume 11.7 fL (9.4-12.4); Monocytes # (auto) 0.65 K/uL (0.11-0.59); Monocytes % (auto) 4.5 %; Neutrophils % (auto) 82.2 %; Platelet Count 208 K/uL (130-400); RDW Coefficient of Variation 12.8 % (11.5-14.5); RDW Standard Deviation 41.1 fL (36.4-46.3); Red Blood Count 4.59 M/uL (4.20-5.40)
[2023-03-16] MEDS ORDERED: ONDANSETRON INJ 2 MG/ML 2 ML VIAL IV STA (03:37)
[2023-03-16] MEDS ORDERED: SODIUM CHLORIDE 0.9% 1000ML 1,000 ML IV SCH (03:45)
[2023-03-16] MEDS: MoRPHine SULFATE 4 MG/ML 1 ML CARP\\VIAL IV PRN ×2 (03:49→09:16)
[2023-03-16 03:50] LABS: Appearance Urine Cloudy (Clear); Bacteria Urine Automated 1+ (Negative); Bilirubin Urine Negative (Negative); Blood Urine Negative (Negative); Color Urine Yellow; Epithelial Cell Urine Auto >30 /lpf (0-5); Glucose Urine UA Negative (Negative); Ketones Urine Negative (Negative); Leukocyte Esterase Urine 3+ (Negative); Nitrite Urine Negative (Negative); Protein Urine Negative (Negative); RBC Urine Automated 0-4 /hpf (0-4); Specific Gravity Urine 1.021 (1.000-1.030); Urobilinogen Urine Negative (Negative); WBC Urine Automated >30 /hpf (0-5)
[2023-03-16 03:52] LABS: Albumin Globulin Ratio 1.6 (0.9-2); Albumin Level 4.5 gm/dl (3.4-5.0); BUN Creatinine Ratio 15.9 (10-20); Bilirubin,Total 0.5 mg/dl (0.2-1.0); Calcium 9.2 mg/dl (8.6-10.3); Est GFR (African American) 103.6 ml/min; Est GFR (Non-African American) 89.4 ml/min; Globulin 2.8 gm/dl (2.5-4.0); Total Protein 7.3 gm/dl (6.0-8.3)
[2023-03-16 03:58] LABS: Pregnancy Test, Serum Negative (Negative)
[2023-03-16] MEDS ORDERED: OPTIRAY 320 500ml IV ONE (04:29)
--- NOTE | 2023-03-16 05:58 | CT Scan Report ---
Exam(s): CT ABDOMEN + PELVIS With Contrast IV Amt: 90ml Optiray 320 EXAM: CT Abdomen and Pelvis With Intravenous Contrast CLINICAL HISTORY: Reason for exam: right side abd pain. TECHNIQUE: Axial computed tomography images of the abdomen and pelvis with intravenous contrast. Automated exposure control was utilized for the study. A dose lowering technique was utilized adhering to the principles of ALARA. CONTRAST: Patient received 90ml Optiray 320 of IV contrast COMPARISON: No relevant prior studies available. FINDINGS: Limitations: Poorly diagnostic reformatted images limit evaluation. Lung bases: Unremarkable. No mass. No consolidation. ABDOMEN: Liver: Unremarkable. No mass. Gallbladder and bile ducts: Unremarkable. No calcified stones. No ductal dilation. Pancreas: Unremarkable. No mass. No ductal dilation. Spleen: Unremarkable. No splenomegaly. Adrenals: Unremarkable. No mass. Kidneys and ureters: Simple left renal cyst. No follow-up of this simple cyst is necessary. No hydronephrosis. Stomach and bowel: Unremarkable. No obstruction. No mucosal thickening. PELVIS: Appendix: Acute appendicitis with the inflamed retrocecal appendix measuring up to 7 mm with submucosal enhancement and adjacent inflammatory change. Consider surgical consultation. No evidence of appendiceal perforation or abscess. Bladder: Unremarkable. No mass. Reproductive: Findings suspicious for right ovarian hemorrhagic cyst measuring up to 2.1 cm. This is not necessarily require further follow- up. ABDOMEN and PELVIS: Intraperitoneal space: Unremarkable. No free air. No significant fluid collection. Bones/joints: No acute fracture. No dislocation. Soft tissues: Unremarkable. Vasculature: Unremarkable. No abdominal aortic aneurysm. Lymph nodes: Unremarkable. No enlarged lymph nodes. IMPRESSION: 1. Acute appendicitis with the inflamed retrocecal appendix measuring up to 7 mm with submucosal enhancement and adjacent inflammatory change. Consider surgical consultation. 2. No evidence of appendiceal perforation or abscess. 3. Findings suspicious for right ovarian hemorrhagic cyst measuring up to 2.1 cm. This is not necessarily require further follow-up. 4. No other acute findings. 5. Incidental findings as described. Communications: Verify Receipt Electronically signed by: Eber Bain MD 03/16/23 05:57 AM
[2023-03-16] MEDS ORDERED: cefOXitin 2,000 MG/60 ML BAG IV STA (06:15)
--- NOTE | 2023-03-16 06:41 | History & Physical Report ---
Date of Service March 16, 2023 Assessment & Plan (1) Appendicitis: Plan: Patient with evidence of acute appendicitis Plan is for laparoscopic appendectomy, possible open appendectomy We will give her IV antibiotics and proceed this morning most likely History of Present Illness Primary Care Provider: Nallely Ji MD 28-year-old female with acute right-sided abdominal pain Her white blood cell count is 14,000 She underwent studies including ultrasound and CT scan The ultrasound did not show anything significant CT scan shows retrocecal appendix consistent with acute appendicitis with no abscess Allergies Allergy/AdvReac Type Severity Reaction Status Date / Time No Known Allergies Allergy Verified 02/08/23 10:42 Home Medications Medication Instructions Recorded Confirmed Type trazodone 50 mg tablet 50 mg PO DAILY PRN sleep #90 tabs 01/10/23 02/08/23 Rx amoxicillin 875 mg-potassium 1 tab PO Q12H #14 tabs 02/08/23 Rx clavulanate 125 mg tablet sertraline 50 mg tablet 50 mg PO DAILY #90 tabs 02/23/23 Rx sertraline 50 mg tablet 50 mg PO DAILY #90 tabs 02/23/23 Rx Past Med/Surg History Medical History 30 weeks gestation of Abnormal uterine bleeding (AUB) Acid reflux disease Anxiety Depression Depression Exposure to COVID-19 virus Hx of varicella Insomnia Migraine Placental abruption in third trimester Supervision of normal intrauterine in primigravida Vaginal bleeding in Surgical History H/O myringotomy Family History Mother Diabetes Father ADHD Brother ADHD Brother No problems noted. Son No problems noted. Son No problems noted. Denies family history of Ovarian cancer Prostate cancer Myocardial infarction Breast cancer Colorectal cancer Social History Smoking Status: Never smoker Second Hand Exposure: Yes; Do You Dip or Chew Tobacco: No; Hx Alcohol Use: No Hx Substance Use: No Preferred Language: Mosotho Communication Ability: Effective Visual Impairment: No Limitations Hearing Ability: Normal Wholesale Manager Required: No Beliefs That Will Affect Care: None marital status: marital status details: Mason Schwartz (27) [phone] Current Living Situation: Spouse Current Living Situation Comment: lives with spouse, son, 4 dogs, 2 cats-spouse changing litter 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 [employer] How many Children do You have: 1 Feels Safe at Home: Yes Childhood Exposure to Second-Hand Smoke: Yes Diet: regular caffeine: Yes during the past year weight has: increased > 10 lbs Dental Care, Regularly: Yes Physical Activity Frequency: 3-4 Times per Week Seatbelt Use: always Sunscreen Use: Yes Assistive Devices: None Review of Systems All systems reviewed & are unremarkable except as noted in HPI & below Physical Exam Physical Exam: Patient with right sided abdominal tenderness Constitutional: well developed; no acute distress Eyes: + anicteric sclerae Respiratory: normal respiratory effort; no respiratory distress Cardiovascular: Rate/Rhythm: regular rate and regular rhythm Gastrointestinal (Abdomen): See above Musculoskeletal: Head/Neck/Chest: head atraumatic Skin: no rashes, warm and dry Neurologic: awake Psychiatric: Orientation: alert Results & Data Vital Signs (Past 12 Hours) Vital Signs Temp Pulse Resp BP Pulse Ox 03/16/23 05:34 94/46 L 03/16/23 05:32 97 03/16/23 05:30 98 03/16/23 05:00 97 03/16/23 05:00 87/47 L 03/16/23 04:35 95 03/16/23 04:00 76 28 H 99 03/16/23 04:00 98/51 L 03/16/23 03:42 79 20 99 03/16/23 03:42 93 H 03/16/23 03:17 36.8 C 96 H 17 122/72 97 Laboratory Results I reviewed her laboratories Diagnostic Findings I reviewed her ultrasound and CT scan films and reports
--- NOTE | 2023-03-16 06:49 | Ultrasound Report ---
Exam(s): US GALLBLADDER EXAM: US Abdomen Limited, Gallbladder CLINICAL HISTORY: Reason for exam: right side abd pain. TECHNIQUE: Real-time ultrasound of the right upper quadrant with image documentation. COMPARISON: No relevant prior studies available. FINDINGS: Liver: The liver measures 16.6 cm in length. Gallbladder: Gallbladder wall thickness measures 1 mm. No gallstones. Common bile duct: The common duct measures 4 mm in diameter. No stones. No dilation. Pancreas: Unremarkable as visualized. IMPRESSION: 1. No acute findings within the right upper quadrant. If there is further concern for cholecystitis, consider HIDA imaging. Electronically signed by: Eber Bain MD 03/16/23 06:48 AM
--- NOTE | 2023-03-16 07:01 | Ultrasound Report ---
ULTRASOUND OF THE PELVIS CLINICAL HISTORY: Right pelvic pain. COMPARISON STUDY: Pelvic CT dated 03/16/2023. TECHNIQUE: Real-time, grayscale, and color flow sonography of the pelvis is performed both transabdom inally and endovaginally. Images are reviewed in the transverse and longitudinal planes. The endovagi nal examination was performed for better assessment of the ovaries and adnexa. FINDINGS: Uterus: The retroverted uterus is normal in size and echotexture, measuring 7.3 x 4.7 x 6.2 cm. Endometrium: The endometrium is normal in appearance, and the endometrial stripe is normal in thickne ss measuring up to 1.0 cm. Ovaries: The ovaries are normal in size and morphology. The right ovary measures 3.6 x 2.4 x 2.2 cm a nd the left ovary measures 2.7 x 1.2 x 2.0 cm. A 1.8 cm complex follicle is seen on the right. Additi onal small follicles are noted bilaterally. Normal Doppler waveforms are shown within both ovaries. Pelvis: There is no free fluid in the cul-de-sac. No concerning adnexal lesion is seen. IMPRESSION: No acute sonographic abnormality is seen in the pelvis. ACT 112: Negative or not required by law. Electronically signed by: Prabhjot Nolan M.D. 03/16/2023 6:58 AM
--- NOTE | 2023-03-16 07:30 | Anesthesiology Consultation ---
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 Surgery Operation Date: 03/16/23 07:00 Proposed Procedures p Laparoscopic Appendectomy - Duane Marr MD, FACS Height/Weight Height: 5 ft 8 in Weight: 80.6 kg Allergies Allergy/AdvReac Type Severity Reaction Status Date / Time No Known Allergies Allergy Verified 02/08/23 10:42 Medications Home Medications Medication Instructions Recorded Confirmed Last Taken trazodone 50 mg tablet 50 mg PO DAILY PRN sleep #90 tabs 01/10/23 02/08/23 Unknown amoxicillin 875 mg-potassium 1 tab PO Q12H #14 tabs 02/08/23 Unknown clavulanate 125 mg tablet sertraline 50 mg tablet 50 mg PO DAILY #90 tabs 02/23/23 Unknown sertraline 50 mg tablet 50 mg PO DAILY #90 tabs 02/23/23 Unknown Active Medications Generic Name Dose Route Start Last Admin Trade Name Freq PRN Reason Stop Dose Admin Morphine Sulfate 4 mg 03/16/23 03:37 03/16/23 03:49 Morphine Sulfate 4 Mg/Ml 1 Ml Carp\Vial IV 03/30/23 03:36 4 mg Q30M PRN Administration Pain Past Medical History Medical History 30 weeks gestation of Abnormal uterine bleeding (AUB) Acid reflux disease Anxiety Depression Depression Exposure to COVID-19 virus Hx of varicella Insomnia Migraine Placental abruption in third trimester Supervision of normal intrauterine in primigravida Vaginal bleeding in Past Family History Family History Mother Diabetes Father ADHD Brother ADHD Brother No problems noted. Son No problems noted. Son No problems noted. Denies family history of Ovarian cancer Prostate cancer Myocardial infarction Breast cancer Colorectal cancer Past Surgical History Surgical History H/O myringotomy Social History Smoking Status: Never smoker Do You Dip or Chew Tobacco: No Hx Alcohol Use: No Hx Substance Use: No Physical Exam Vital Signs Last Vital Signs Temp 98.2 F 03/16/23 03:17 Pulse 67 03/16/23 07:00 Resp 21 03/16/23 07:00 BP 90/49 L 03/16/23 07:00 Pulse Ox 99 03/16/23 07:00 O2 Del Method Room Air 03/16/23 07:00 Testing Laboratory Results 03/16/23 03:23 03/16/23 03:23 Urine Color Yellow 03/16/23 03:34 Urine Appearance Cloudy (Clear) A 03/16/23 03:34 Urine pH 8.0 (4.5-7.5) H 03/16/23 03:34 Ur Specific [place] 1.021 (1.000-1.030) 03/16/23 03:34 Urine Protein Negative (Negative) 03/16/23 03:34 Urine Glucose (UA) Negative (Negative) 03/16/23 03:34 Urine Ketones Negative (Negative) 03/16/23 03:34 Urine Nitrite Negative (Negative) 03/16/23 03:34 Ur Leukocyte Esterase 3+ (Negative) H 03/16/23 03:34 Urine WBC (Auto) >30 /hpf (0-5) H 03/16/23 03:34 Urine RBC (Auto) 0-4 /hpf (0-4) 03/16/23 03:34 U Hyaline Cast (Auto) 1-5 /lpf (0-5) 03/16/23 03:34 U Epithel Cells (Auto) >30 /lpf (0-5) H 03/16/23 03:34 Urine Bacteria (Auto) 1+ (Negative) H 03/16/23 03:34
[2023-03-16] MEDS ORDERED: fentaNYL citrate PF 100 MCG/2 ML VIAL ONE (08:02)
[2023-03-16] MEDS ORDERED: SUCCINYLCHOLINE CHLORIDE 20 MG/ML 10 ML VIAL IV ONE (08:04)
[2023-03-16] MEDS ORDERED: PHENYLEPHRINE HCL 10 MG/ML VIAL ONE (08:22)
[2023-03-16] MEDS ORDERED: ROCURONIUM BROMIDE 10 MG/ML 5 ML VIAL IV ONE (08:22)
[2023-03-16] MEDS ORDERED: MIDAZOLAM HCL 1 MG/ML 2ML VIAL ONE (08:32)
[2023-03-16] MEDS ORDERED: ACETAMINOPHEN 1000 MG/100 ML IV IV ONE (08:43)
[2023-03-16] MEDS ORDERED: FAMOTIDINE/PF 20 MG/2 ML VIAL IV ONE (08:43)
[2023-03-16] MEDS ORDERED: ONDANSETRON INJ 2 MG/ML 2 ML VIAL ONE (09:59)
[2023-03-16] MEDS ORDERED: DEXAMETHASONE SOD INJ 4 MG/ML VIAL ONE ×2 (09:59→10:55)
[2023-03-16] MEDS ORDERED: BUPIVACAINE 0.5 % 5 MG/1 ML MPF 30ML VIAL ONE (10:16)
[2023-03-16] MEDS ORDERED: SCOPOLAMINE 1 MG TDSY TD ONE (10:24)
[2023-03-16] MEDS ORDERED: METOCLOPRAMIDE HCL INJ 5 MG/ML 2 ML VIAL ONE (10:55)
[2023-03-16] MEDS ORDERED: ONDANSETRON INJ 2 MG/ML 2 ML VIAL IV PRN ×2 (11:04→12:34)
[2023-03-16] MEDS ORDERED: ATROPINE SULFATE 0.1 MG/ML 10ML SYR IV PRN (11:04)
[2023-03-16] MEDS ORDERED: ePHEDrine sulfate 50 MG/ML AMP IV PRN (11:04)
[2023-03-16] MEDS ORDERED: NEOSTIGMINE METHYLSULFATE 1 MG/ML 10ML VIAL ONE (11:12)
[2023-03-16] MEDS ORDERED: GLYCOPYRROLATE 0.2 MG/ML VIAL ONE (11:12)
--- NOTE | 2023-03-16 11:23 | Post Operative Brief Note ---
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 Appendix
[2023-03-16] MEDS: fentaNYL citrate PF 100 MCG/2 ML VIAL IV PRN ×2 (11:50→11:55)
--- NOTE | 2023-03-16 12:05 | Operative Report (OR) ---
DATE OF OPERATION: 03/16/2023. NAME OF OPERATION: Laparoscopic appendectomy. PREOPERATIVE DIAGNOSIS: Acute appendicitis. POSTOPERATIVE DIAGNOSIS: Acute appendicitis. STAFF SURGEON: Duane Marr MD. ANESTHESIA: General. DESCRIPTION OF PROCEDURE: The patient was brought in the operating room, placed on the operating tab le in supine position. Her abdomen was prepped and draped in the usual fashion. Pneumatic stockings and orogastric tube were placed. Incision was made above the umbilicus using 0.5% plain Marcaine to anesthetize all incisions. Incision carried down to the fascia, a Veress needle placed. Pneumoperi toneum produced. An 11 mm port placed at this level, then under visualization, 5 mm port placed supra pubically, 12 mm port in the left lower quadrant. Cecum was reflected. The appendix was retrocecal. It was inflamed. Dissection was carried out at the base of the appendix, transecting the base usin g a brown load Endo-CECY and then the mesoappendix transected using 2 additional brown loads. Append ix was placed in an Endobag, then removed through the left lower quadrant port site. After appropria te irrigation and hemostasis, all ports were removed. The umbilical site and left lower quadrant sit e closed, reapproximating the fascia using 0 Vicryl suture. The skin was reapproximated using subcut icular 4-0 Monocryl. Dermabond at the umbilical site and suprapubic site. Steri-Strips, left lower quadrant. The patient was transferred to recovery room in stable condition. Job ID: [id number]
[2023-03-16] MEDS ORDERED: oxyCODONE HCL IR 5 MG TAB (IMMEDIATE RELEASE) PO PRN (12:34)
[2023-03-16] MEDS ORDERED: traZODone HCL 50 MG TAB PO PRN (12:34)
[2023-03-16] MEDS ORDERED: HYDROmorphone INJ 0.5 MG/0.5 ML SYR IV PRN (12:34)
[2023-03-16] MEDS ORDERED: LACTATED RINGER'S 1,000 ML IV SCH (12:34)
[2023-03-16] MEDS ORDERED: ACETAMINOPHEN 325 MG TAB PO PRN (12:34)
--- NOTE | 2023-03-16 14:21 | Anesthesiology Progress Note ---
Date of Service March 16, 2023 Anesthesia Post Procedure Vital Signs Vital Signs: Temp Pulse Pulse Pulse Resp BP BP 03/16/23 13:28 36.9 C 102 H 16 100/52 L 03/16/23 12:58 36.7 C 80 14 101/60 03/16/23 14:13 36.9 C 89 16 102/64 03/16/23 12:31 36.9 C 81 18 93/63 L 03/16/23 12:15 70 14 111/56 L 03/16/23 12:05 36.4 C L 70 20 118/59 L 03/16/23 11:55 62 12 110/54 L 03/16/23 11:45 74 13 113/63 03/16/23 11:35 36.2 C L 97 H 16 126/76 03/16/23 09:52 36.8 C 83 20 126/53 L 03/16/23 09:30 83 17 03/16/23 09:30 110/58 L 03/16/23 09:29 03/16/23 09:00 59 L 19 03/16/23 09:00 115/64 03/16/23 08:30 56 L 17 03/16/23 08:30 119/67 03/16/23 08:00 59 L 16 03/16/23 08:00 85/56 L 03/16/23 07:30 70 19 03/16/23 07:30 94/50 L 03/16/23 07:00 67 21 03/16/23 07:00 90/49 L 03/16/23 05:34 94/46 L 03/16/23 05:32 03/16/23 05:30 03/16/23 05:00 03/16/23 05:00 87/47 L 03/16/23 04:35 03/16/23 04:00 76 28 H 03/16/23 04:00 98/51 L 03/16/23 03:42 79 20 03/16/23 03:42 93 H 03/16/23 03:17 36.8 C 96 H 17 122/72 Pulse Ox O2 Del Method O2 Flow Rate 03/16/23 13:28 98 Room Air 03/16/23 12:58 97 Room Air 03/16/23 14:13 98 Room Air 03/16/23 12:31 97 Room Air 03/16/23 12:15 97 Room Air 03/16/23 12:05 98 Room Air 03/16/23 11:55 100 Oxymask 4 03/16/23 11:45 100 Oxymask 4 03/16/23 11:35 99 Oxymask 6 03/16/23 09:52 97 Room Air 03/16/23 09:30 97 Room Air 03/16/23 09:30 03/16/23 09:29 Room Air 03/16/23 09:00 98 Room Air 03/16/23 09:00 03/16/23 08:30 97 Room Air 03/16/23 08:30 03/16/23 08:00 98 Room Air 03/16/23 08:00 03/16/23 07:30 99 Room Air 03/16/23 07:30 03/16/23 07:00 99 Room Air 03/16/23 07:00 03/16/23 05:34 03/16/23 05:32 97 03/16/23 05:30 98 03/16/23 05:00 97 03/16/23 05:00 03/16/23 04:35 95 03/16/23 04:00 99 03/16/23 04:00 03/16/23 03:42 99 03/16/23 03:42 03/16/23 03:17 97 Pain Intensity Abdomen: Pain Intensity: 3 Transfer of Care Handoff Completed per policy Notes Mental Status: alert / awake / arousable Patient Amnestic to Procedure: Yes Nausea / Vomiting: adequately controlled Pain: adequately controlled Airway Patency, RR, SpO2: stable & adequate BP & HR: stable & adequate Hydration State: stable & adequate Anesthetic Complications: no major complications apparent
--- NOTE | 2023-03-17 03:10 | Emergency Department Note ---
History of Present Illness General Chief complaint: Flank Pain Stated complaint: PAIN ON RIGHT SIDE Time Seen by Provider: 03/16/23 03:18 History of Present Illness Maximum Pain Intensity: 7 This is a 28-year-old female presenting to the emergency department for evaluation of right-sided abdominal pain. The patient's symptoms began last evening after eating dinner around 9 PM and have persisted ever since. She has not had fevers or chills. She does not believe that she is . She has not had symptoms like this in the past. No previous abdominal surgeries. She rates her discomfort a 05/16. Home Medications Medication Instructions Recorded Confirmed Type trazodone 50 mg tablet 50 mg PO DAILY PRN sleep #90 tabs 01/10/23 03/16/23 Rx sertraline 50 mg tablet 50 mg PO DAILY #90 tabs 02/23/23 03/16/23 Rx hydrocodone 5 mg-acetaminophen 325 1 tab PO Q4H PRN pain #20 tabs 03/16/23 Rx mg tablet hydrocodone 5 mg-acetaminophen 325 1 tab PO Q4H PRN pain #20 tabs 03/16/23 Rx mg tablet ondansetron HCl 4 mg tablet 4 mg PO Q6H PRN nausea and 03/16/23 Rx vomiting #10 tabs Allergies Allergy/AdvReac Type Severity Reaction Status Date / Time No Known Allergies Allergy Verified 02/08/23 10:42 Past Med/Surg History Medical History 30 weeks gestation of Abnormal uterine bleeding (AUB) Acid reflux disease Anxiety Depression Depression Exposure to COVID-19 virus Hx of varicella Insomnia Migraine Placental abruption in third trimester Supervision of normal intrauterine in primigravida Vaginal bleeding in Surgical History H/O myringotomy Family History Mother Diabetes Father ADHD Brother ADHD Brother No problems noted. Son No problems noted. Son No problems noted. Denies family history of Ovarian cancer Prostate cancer Myocardial infarction Breast cancer Colorectal cancer Social History Smoking Status: Never smoker Second Hand Exposure: Yes; Do You Dip or Chew Tobacco: No; Hx Alcohol Use: No Hx Substance Use: No Preferred Language: Uzbek Communication Ability: Effective Visual Impairment: No Limitations Hearing Ability: Normal Licensed Prosthetist/Orthotist Required: No Beliefs That Will Affect Care: None marital status: marital status details: Mason Schwartz (27) [phone] Current Living Situation: Spouse Current Living Situation Comment: lives with spouse, son, 4 dogs, 2 cats-spouse changing litter 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 [employer] How many Children do You have: 1 Feels Safe at Home: Yes Childhood Exposure to Second-Hand Smoke: Yes Diet: regular caffeine: Yes during the past year weight has: increased > 10 lbs Dental Care, Regularly: Yes Physical Activity Frequency: 3-4 Times per Week Seatbelt Use: always Sunscreen Use: Yes Assistive Devices: None Review of Systems A total of 10 systems reviewed and were otherwise negative Physical Exam Vital Signs Vital Signs - 24 hr 03/16/23 03:17 03/16/23 03:42 03/16/23 03:42 Temperature 36.8 C Temperature Source Oral Pulse Rate 96 H 93 H 79 Pulse Rate [Apical] Pulse Rate from SpO2 Sensor 83 Pulse Rhythm [Apical] Pulse Strength [Apical] Respiratory Rate 17 20 Respiratory Effort / Characteristics Respiratory Depth Respiratory Pattern Blood Pressure 122/72 Blood Pressure [Right Arm] Blood Pressure Mean 88 Blood Pressure Mean [Right Arm] Blood Pressure Position [Right Arm] Pulse Oximetry 97 99 Oxygen Delivery Method Sepsis Recent Fever Within 48 Hours No Sepsis New/Unexplained Change in Mental Status No Sepsis Action Taken by Nursing No Action Required 03/16/23 04:00 03/16/23 04:00 03/16/23 04:35 Temperature Temperature Source Pulse Rate 76 Pulse Rate [Apical] Pulse Rate from SpO2 Sensor 76 75 Pulse Rhythm [Apical] Pulse Strength [Apical] Respiratory Rate 28 H Respiratory Effort / Characteristics Respiratory Depth Respiratory Pattern Blood Pressure 98/51 L Blood Pressure [Right Arm] Blood Pressure Mean 66 Blood Pressure Mean [Right Arm] Blood Pressure Position [Right Arm] Pulse Oximetry 99 95 Oxygen Delivery Method Sepsis Recent Fever Within 48 Hours Sepsis New/Unexplained Change in Mental Status Sepsis Action Taken by Nursing 03/16/23 05:00 03/16/23 05:00 03/16/23 05:30 Temperature Temperature Source Pulse Rate Pulse Rate [Apical] Pulse Rate from SpO2 Sensor 56 L 62 Pulse Rhythm [Apical] Pulse Strength [Apical] Respiratory Rate Respiratory Effort / Characteristics Respiratory Depth Respiratory Pattern Blood Pressure 87/47 L Blood Pressure [Right Arm] Blood Pressure Mean 60 Blood Pressure Mean [Right Arm] Blood Pressure Position [Right Arm] Pulse Oximetry 97 98 Oxygen Delivery Method Sepsis Recent Fever Within 48 Hours Sepsis New/Unexplained Change in Mental Status Sepsis Action Taken by Nursing 03/16/23 05:32 03/16/23 05:34 03/16/23 07:00 Temperature Temperature Source Pulse Rate Pulse Rate [Apical] Pulse Rate from SpO2 Sensor 58 L Pulse Rhythm [Apical] Pulse Strength [Apical] Respiratory Rate Respiratory Effort / Characteristics Respiratory Depth Respiratory Pattern Blood Pressure 94/46 L 90/49 L Blood Pressure [Right Arm] Blood Pressure Mean 62 62 Blood Pressure Mean [Right Arm] Blood Pressure Position [Right Arm] Pulse Oximetry 97 Oxygen Delivery Method Sepsis Recent Fever Within 48 Hours Sepsis New/Unexplained Change in Mental Status Sepsis Action Taken by Nursing 03/16/23 07:00 03/16/23 07:30 03/16/23 07:30 Temperature Temperature Source Pulse Rate 67 70 Pulse Rate [Apical] Pulse Rate from SpO2 Sensor 65 72 Pulse Rhythm [Apical] Pulse Strength [Apical] Respiratory Rate 21 19 Respiratory Effort / Characteristics Respiratory Depth Respiratory Pattern Blood Pressure 94/50 L Blood Pressure [Right Arm] Blood Pressure Mean 64 Blood Pressure Mean [Right Arm] Blood Pressure Position [Right Arm] Pulse Oximetry 99 99 Oxygen Delivery Method Room Air Room Air Sepsis Recent Fever Within 48 Hours Sepsis New/Unexplained Change in Mental Status Sepsis Action Taken by Nursing 03/16/23 08:00 03/16/23 08:00 03/16/23 08:30 Temperature Temperature Source Pulse Rate 59 L Pulse Rate [Apical] Pulse Rate from SpO2 Sensor 58 L Pulse Rhythm [Apical] Pulse Strength [Apical] Respiratory Rate 16 Respiratory Effort / Characteristics Respiratory Depth Respiratory Pattern Blood Pressure 85/56 L 119/67 Blood Pressure [Right Arm] Blood Pressure Mean 65 84 Blood Pressure Mean [Right Arm] Blood Pressure Position [Right Arm] Pulse Oximetry 98 Oxygen Delivery Method Room Air Sepsis Recent Fever Within 48 Hours Sepsis New/Unexplained Change in Mental Status Sepsis Action Taken by Nursing 03/16/23 08:30 03/16/23 09:00 03/16/23 09:00 Temperature Temperature Source Pulse Rate 56 L 59 L Pulse Rate [Apical] Pulse Rate from SpO2 Sensor 60 57 L Pulse Rhythm [Apical] Pulse Strength [Apical] Respiratory Rate 17 19 Respiratory Effort / Characteristics Respiratory Depth Respiratory Pattern Blood Pressure 115/64 Blood Pressure [Right Arm] Blood Pressure Mean 81 Blood Pressure Mean [Right Arm] Blood Pressure Position [Right Arm] Pulse Oximetry 97 98 Oxygen Delivery Method Room Air Room Air Sepsis Recent Fever Within 48 Hours Sepsis New/Unexplained Change in Mental Status Sepsis Action Taken by Nursing 03/16/23 09:29 03/16/23 09:30 03/16/23 09:30 Temperature Temperature Source Pulse Rate 83 Pulse Rate [Apical] Pulse Rate from SpO2 Sensor 79 Pulse Rhythm [Apical] Pulse Strength [Apical] Respiratory Rate 17 Respiratory Effort / Characteristics Respiratory Depth Respiratory Pattern Blood Pressure 110/58 L Blood Pressure [Right Arm] Blood Pressure Mean 75 Blood Pressure Mean [Right Arm] Blood Pressure Position [Right Arm] Pulse Oximetry 97 Oxygen Delivery Method Room Air Room Air Sepsis Recent Fever Within 48 Hours Sepsis New/Unexplained Change in Mental Status Sepsis Action Taken by Nursing 03/16/23 09:52 Temperature 36.8 C Temperature Source Oral Pulse Rate Pulse Rate [Apical] 83 Pulse Rate from SpO2 Sensor Pulse Rhythm [Apical] Regular Pulse Strength [Apical] Normal Respiratory Rate 20 Respiratory Effort / Characteristics Non-Labored Spontaneous Respiratory Depth Normal Respiratory Pattern Regular Blood Pressure Blood Pressure [Right Arm] 126/53 L Blood Pressure Mean Blood Pressure Mean [Right Arm] 77 Blood Pressure Position [Right Arm] Semi-fowlers Pulse Oximetry 97 Oxygen Delivery Method Room Air Sepsis Recent Fever Within 48 Hours Sepsis New/Unexplained Change in Mental Status Sepsis Action Taken by Nursing VITALS: Vitals are noted on the nurse's note and reviewed by myself. Vital signs stable. GENERAL: Well-developed, well-nourished, white female, who is in no acute distress and resting comfortably. Patient is cooperative with the examination. HEAD: Normocephalic atraumatic. HEART: Regular rate and rhythm without murmurs gallops or rubs. LUNGS: Clear to auscultation bilaterally without wheezes, rales or rhonchi. No retractions or accessory muscle use. ABDOMEN: Positive normal bowel sounds x 4. Soft with right-sided abdominal tenderness. This is roughly mid between the right upper quadrant and right lower quadrant. No CVA tenderness or rash. MUSCULOSKELETAL: No muscle atrophy, erythema, or edema noted. Full range of motion in all extremities. Course Administered Medications Discontinued Medications Bupivacaine HCl (Bupivacaine 0.5 % 5 Mg/1 Ml Mpf 30ml Vial) Confirm Administered Dose 30 ml .ROUTE .STK-MED ONE Stop: 03/16/23 10:17 Last Admin: 03/16/23 11:16 Dose: 9 ml Documented By: MATT Fentanyl Citrate (Fentanyl Citrate Pf 100 Mcg/2 Ml Vial) 50 mcg IV Q5M PRN PRN Reason: PACU Use Only-Pain Stop: 03/16/23 19:04 Last Admin: 03/16/23 11:55 Dose: 50 mcg Documented By: Admin: 03/16/23 11:50 Dose: 50 mcg Documented By: CHYNA Sodium Chloride (Nss 1000ml) 1,000 mls @ 999 mls/hr IV .Q1H1M MICHELLE Stop: 03/16/23 04:45 Last Infusion: 03/16/23 04:00 Dose: 0 mls/hr Documented By: Admin: 03/16/23 03:49 Dose: 999 mls/hr Documented By: MIRNA Cefoxitin Sodium (Mefoxin) 2,000 mg in 60 mls @ 100 mls/hr IV NOW STA Stop: 03/16/23 06:50 Last Infusion: 03/16/23 07:20 Dose: 0 mls/hr Documented By: Admin: 03/16/23 06:44 Dose: 100 mls/hr Documented By: MIRNA Cefoxitin Sodium 1,000 mg/ (Dextrose) 60 mls @ 100 mls/hr IV Q6H MICHELLE Stop: 03/26/23 12:59 Last Infusion: 03/16/23 14:48 Dose: 0 mls/hr Documented By: Admin: 03/16/23 14:09 Dose: 100 mls/hr Documented By: STANLEY Lactated Ringer's (Lr) 1,000 mls @ 50 mls/hr IV .Q20H MICHELLE Stop: 04/15/23 12:33 Last Admin: 03/16/23 12:34 Dose: 50 mls/hr Documented By: STANLEY Ioversol (Optiray 320 500ml) 90 ml IV ONCE ONE Stop: 03/16/23 04:30 Last Admin: 03/16/23 04:29 Dose: 90 ml Documented By: RAMÓN Morphine Sulfate (Morphine Sulfate 4 Mg/Ml 1 Ml Carp\Vial) 4 mg IV Q30M PRN PRN Reason: Pain Stop: 03/30/23 03:36 Last Admin: 03/16/23 09:16 Dose: 4 mg Documented By: Admin: 03/16/23 03:49 Dose: 4 mg Documented By: MIRNA Ondansetron HCl (Ondansetron Inj 2 Mg/Ml 2 Ml Vial) 4 mg IV NOW STA Stop: 03/16/23 03:38 Last Admin: 03/16/23 03:49 Dose: 4 mg Documented By: MIRNA Medical Decision Making Differential Diagnosis Differential diagnosis: Etiologies such as biliary colic, cholecystitis, hepatitis, pancreatitis, cardiac disease, pancreatitis, gastritis, peptic ulcer disease, appendicitis, cystitis, diverticulitis, mesenteric ischemia, inflammatory bowel disease, ileus, bowel obstruction, testicular/adnexal torsion, aortic pathology, shingles, as well as others were considered Laboratory Data 03/16/23 03:23 03/16/23 03:23 Lab Results 03/16/23 03/16/23 03/16/23 Range/Units 03:23 03:23 03:23 WBC 14.60 H (4.8-10.8) K/ul RBC 4.59 (4.20-5.40) M/uL Hgb 13.6 (12.0-16.0) g/dl Hct 40.5 (37.0-47.0) % MCV 88.2 (80.0-100.0) fL MCH 29.6 (25.0-34.0) pg MCHC 33.6 (32.0-36.0) g/dL RDW Std Deviation 41.1 (36.4-46.3) fL RDW Coeff of Nikos 12.8 (11.5-14.5) % Plt Count 208 (130-400) K/uL MPV 11.7 (9.4-12.4) fL Immature Gran % (Auto) 0.3 % Neut % (Auto) 82.2 % Lymph % (Auto) 12.2 % [place] % (Auto) 4.5 % Eos % (Auto) 0.5 % Baso % (Auto) 0.3 % Neut # (Auto) 12.00 H (1.40-6.50) K/uL Lymph # (Auto) 1.78 (1.2-3.4) K/uL [place] # (Auto) 0.65 H (0.11-0.59) K/uL Eos # (Auto) 0.07 (0-0.50) K/uL Baso # (Auto) 0.05 (0-0.2) K/uL Immature Gran # (Auto) 0.05 (0.01-0.20) K/uL Sodium 135 L (136-145) mmol/L Potassium 4.0 (3.5-5.1) mmol/L Chloride 106 (98-107) mmol/L Carbon Dioxide 23 (21-32) mmol/L Anion Gap 6 (3-11) BUN 14 (6-23) mg/dl Creatinine 0.88 (0.6-1.2) mg/dl Est Cr Clr Drug Dosing 106.0 ml/min Est GFR ( Amer) 103.6 ml/min Est GFR (Non-Af Amer) 89.4 ml/min BUN/Creatinine Ratio 15.9 (10-20) Glucose 99 (70-99(Fasting)) mg/dl Calcium 9.2 (8.6-10.3) mg/dl Total Bilirubin 0.5 (0.2-1.0) mg/dl AST 17 (13-39) U/L ALT 9 (7-52) U/L Alkaline Phosphatase 57 (34-104) U/L Total Protein 7.3 (6.0-8.3) gm/dl Albumin 4.5 (3.4-5.0) gm/dl Globulin 2.8 (2.5-4.0) gm/dl Albumin/Globulin Ratio 1.6 (0.9-2) Lipase 33 (11-82) U/L HCG, Qual Negative (Negative) Urine Color Urine Appearance (Clear) Urine pH (4.5-7.5) Ur Specific [place] (1.000-1.030) Urine Protein (Negative) Urine Glucose (UA) (Negative) Urine Ketones (Negative) Urine Blood (Negative) Urine Nitrite (Negative) Urine Bilirubin (Negative) Urine Urobilinogen (Negative) Ur Leukocyte Esterase (Negative) Urine WBC (Auto) (0-5) /hpf Urine RBC (Auto) (0-4) /hpf U Hyaline Cast (Auto) (0-5) /lpf U Epithel Cells (Auto) (0-5) /lpf Urine Bacteria (Auto) (Negative) SARS-CoV-2, RNA, NAAT (NEGATIVE) 03/16/23 03/16/23 Range/Units 03:34 07:05 WBC (4.8-10.8) K/ul RBC (4.20-5.40) M/uL Hgb (12.0-16.0) g/dl Hct (37.0-47.0) % MCV (80.0-100.0) fL MCH (25.0-34.0) pg MCHC (32.0-36.0) g/dL RDW Std Deviation (36.4-46.3) fL RDW Coeff of Nikos (11.5-14.5) % Plt Count (130-400) K/uL MPV (9.4-12.4) fL Immature Gran % (Auto) % Neut % (Auto) % Lymph % (Auto) % [place] % (Auto) % Eos % (Auto) % Baso % (Auto) % Neut # (Auto) (1.40-6.50) K/uL Lymph # (Auto) (1.2-3.4) K/uL B[place] # (Auto) (0.11-0.59) K/uL Eos # (Auto) (0-0.50) K/uL Baso # (Auto) (0-0.2) K/uL Immature Gran # (Auto) (0.01-0.20) K/uL Sodium (136-145) mmol/L Potassium (3.5-5.1) mmol/L Chloride (98-107) mmol/L Carbon Dioxide (21-32) mmol/L Anion Gap (3-11) BUN (6-23) mg/dl Creatinine (0.6-1.2) mg/dl Est Cr Clr Drug Dosing ml/min Est GFR ( Amer) ml/min Est GFR (Non-Af Amer) ml/min BUN/Creatinine Ratio (10-20) Glucose (70-99(Fasting)) mg/dl Calcium (8.6-10.3) mg/dl Total Bilirubin (0.2-1.0) mg/dl AST (13-39) U/L ALT (7-52) U/L Alkaline Phosphatase (34-104) U/L Total Protein (6.0-8.3) gm/dl Albumin (3.4-5.0) gm/dl Globulin (2.5-4.0) gm/dl Albumin/Globulin Ratio (0.9-2) Lipase (11-82) U/L HCG, Qual (Negative) Urine Color Yellow Urine Appearance Cloudy A (Clear) Urine pH 8.0 H (4.5-7.5) Ur Specific [place] 1.021 (1.000-1.030) Urine Protein Negative (Negative) Urine Glucose (UA) Negative (Negative) Urine Ketones Negative (Negative) Urine Blood Negative (Negative) Urine Nitrite Negative (Negative) Urine Bilirubin Negative (Negative) Urine Urobilinogen Negative (Negative) Ur Leukocyte Esterase 3+ H (Negative) Urine WBC (Auto) >30 H (0-5) /hpf Urine RBC (Auto) 0-4 (0-4) /hpf U Hyaline Cast (Auto) 1-5 (0-5) /lpf U Epithel Cells (Auto) >30 H (0-5) /lpf Urine Bacteria (Auto) 1+ H (Negative) SARS-CoV-2, RNA, NAAT NEGATIVE (NEGATIVE) Imaging Data Radiologist's Impression: Abdomen/Pelvis CT 03/16/23 03:37 CR Exam(s): CT ABDOMEN + PELVIS With Contrast IV Amt: 90ml Optiray 320 EXAM: CT Abdomen and Pelvis With Intravenous Contrast CLINICAL HISTORY: Reason for exam: right side abd pain. TECHNIQUE: Axial computed tomography images of the abdomen and pelvis with intravenous contrast. Automated exposure control was utilized for the study. A dose lowering technique was utilized adhering to the principles of ALARA. CONTRAST: Patient received 90ml Optiray 320 of IV contrast COMPARISON: No relevant prior studies available. FINDINGS: Limitations: Poorly diagnostic reformatted images limit evaluation. Lung bases: Unremarkable. No mass. No consolidation. ABDOMEN: Liver: Unremarkable. No mass. Gallbladder and bile ducts: Unremarkable. No calcified stones. No ductal dilation. Pancreas: Unremarkable. No mass. No ductal dilation. Spleen: Unremarkable. No splenomegaly. Adrenals: Unremarkable. No mass. Kidneys and ureters: Simple left renal cyst. No follow-up of this simple cyst is necessary. No hydronephrosis. Stomach and bowel: Unremarkable. No obstruction. No mucosal thickening. PELVIS: Appendix: Acute appendicitis with the inflamed retrocecal appendix measuring up to 7 mm with submucosal enhancement and adjacent inflammatory change. Consider surgical consultation. No evidence of appendiceal perforation or abscess. Bladder: Unremarkable. No mass. Reproductive: Findings suspicious for right ovarian hemorrhagic cyst measuring up to 2.1 cm. This is not necessarily require further follow- up. ABDOMEN and PELVIS: Intraperitoneal space: Unremarkable. No free air. No significant fluid collection. Bones/joints: No acute fracture. No dislocation. Soft tissues: Unremarkable. Vasculature: Unremarkable. No abdominal aortic aneurysm. Lymph nodes: Unremarkable. No enlarged lymph nodes. IMPRESSION: 1. Acute appendicitis with the inflamed retrocecal appendix measuring up to 7 mm with submucosal enhancement and adjacent inflammatory change. Consider surgical consultation. 2. No evidence of appendiceal perforation or abscess. 3. Findings suspicious for right ovarian hemorrhagic cyst measuring up to 2.1 cm. This is not necessarily require further follow-up. 4. No other acute findings. 5. Incidental findings as described. Communications: Verify Receipt Electronically signed by: Eber Bain MD 03/16/23 05:57 AM Gallbladder Ultrasound 03/16/23 03:37 Exam(s): US GALLBLADDER EXAM: US Abdomen Limited, Gallbladder CLINICAL HISTORY: Reason for exam: right side abd pain. TECHNIQUE: Real-time ultrasound of the right upper quadrant with image documentation. COMPARISON: No relevant prior studies available. FINDINGS: Liver: The liver measures 16.6 cm in length. Gallbladder: Gallbladder wall thickness measures 1 mm. No gallstones. Common bile duct: The common duct measures 4 mm in diameter. No stones. No dilation. Pancreas: Unremarkable as visualized. IMPRESSION: 1. No acute findings within the right upper quadrant. If there is further concern for cholecystitis, consider HIDA imaging. Electronically signed by: Eber Bain MD 03/16/23 06:48 AM Pelvis Ultrasound 03/16/23 03:37 ULTRASOUND OF THE PELVIS CLINICAL HISTORY: Right pelvic pain. COMPARISON STUDY: Pelvic CT dated 03/16/2023. TECHNIQUE: Real-time, grayscale, and color flow sonography of the pelvis is performed both transabdominally and endovaginally. Images are reviewed in the transverse and longitudinal planes. The endovaginal examination was performed for better assessment of the ovaries and adnexa. FINDINGS: Uterus: The retroverted uterus is normal in size and echotexture, measuring 7.3 x 4.7 x 6.2 cm. Endometrium: The endometrium is normal in appearance, and the endometrial stripe is normal in thickness measuring up to 1.0 cm. Ovaries: The ovaries are normal in size and morphology. The right ovary measures 3.6 x 2.4 x 2.2 cm and the left ovary measures 2.7 x 1.2 x 2.0 cm. A 1.8 cm complex follicle is seen on the right. Additional small follicles are noted bilaterally. Normal Doppler waveforms are shown within both ovaries. Pelvis: There is no free fluid in the cul-de-sac. No concerning adnexal lesion is seen. IMPRESSION: No acute sonographic abnormality is seen in the pelvis. ACT 112: Negative or not required by law. Electronically signed by: Prabhjot Nolan M.D. 03/16/2023 6:58 AM Transvaginal US 03/16/23 03:38 ULTRASOUND OF THE PELVIS CLINICAL HISTORY: Right pelvic pain. COMPARISON STUDY: Pelvic CT dated 03/16/2023. TECHNIQUE: Real-time, grayscale, and color flow sonography of the pelvis is performed both transabdominally and endovaginally. Images are reviewed in the transverse and longitudinal planes. The endovaginal examination was performed for better assessment of the ovaries and adnexa. FINDINGS: Uterus: The retroverted uterus is normal in size and echotexture, measuring 7.3 x 4.7 x 6.2 cm. Endometrium: The endometrium is normal in appearance, and the endometrial stripe is normal in thickness measuring up to 1.0 cm. Ovaries: The ovaries are normal in size and morphology. The right ovary measures 3.6 x 2.4 x 2.2 cm and the left ovary measures 2.7 x 1.2 x 2.0 cm. A 1.8 cm complex follicle is seen on the right. Additional small follicles are noted bilaterally. Normal Doppler waveforms are shown within both ovaries. Pelvis: There is no free fluid in the cul-de-sac. No concerning adnexal lesion is seen. IMPRESSION: No acute sonographic abnormality is seen in the pelvis. ACT 112: Negative or not required by law. Electronically signed by: Prabhjot Nolan M.D. 03/16/2023 6:58 AM MDM Narrative Physical exam and history were performed. Nursing notes, EMR, and Medication List were personally reviewed. No social concerns were identified as barriers to patients care. Patient appears to have right-sided abdominal pain for the past several hours. She does have reproducible tenderness. IV access was established and labs were obtained. She was hydrated with normal saline and given IV morphine and IV Zofran for comfort. Her tenderness is not distinctly right upper quadrant or right lower quadrant. Because of this CT scan with IV contrast as well as ultrasound of the right upper quadrant and pelvis were performed. Patient's blood work is as above and was reviewed. She does have an elevated white count of 14,000. She does not have significant anemia, bandemia, or gross electrolyte imbalance. Lipase and transaminases are not diagnostic. She is not . Urine is without obvious infection. CT scan was reviewed by myself and radiology and does reveal ACUTE APPENDICITIS. Ultrasounds were unremarkabl e. Case was discussed with the on-call surgical team, who did agree to evaluate the patient here in the ER. Please see their dictation for further patient course, plan, disposition. The chart was completed utilizing [employer] Speech Voice Recognition Software. Grammatical errors, random word insertions, pronoun errors, and incomplete sentences are an occasional consequence of this system due to software limitations, ambient noise, and hardware issues. Any formal questions or concerns about the content, text, or information contained within the body of this dictation should be directly addressed to the provider for clarification. . Impression & Plan Appendicitis Discharge Plan Visit Data Chief Complaint: Flank Pain Stated Complaint: PAIN ON RIGHT SIDE ED Provider: Matt Caicedo ED Midlevel Provider: Phill Blevins Discharge Problem: Appendicitis Patient Disposition: Admitted As Inpatient Discharge Instructions Interventions: ED Discharge Assessment Last Done: 03/16/23 09:29
[2023-03-17] MEDS ORDERED: SERTRALINE HCL 50 MG TABLET PO SCH (09:00)
--- NOTE | 2023-03-21 08:03 | Discharge Summary (DS) ---
DATE OF ADMISSION: 03/16/2023. DATE OF DISCHARGE: 03/16/2023. PRINCIPAL DIAGNOSIS: Acute appendicitis. HISTORY OF PRESENT ILLNESS: The patient is a 28-year-old female presenting to the Emergency Room wit h acute abdominal pain and found with acute appendicitis. She was taken to the operating room on 08/2023, where she underwent laparoscopic and then was discharged home later in the day. She w as to be followed up in the surgical clinic within 1-2 weeks. Job ID: [id number]
== END 2023-03-16 16:16 | disposition home or self-care (01) ==
LOC: ED 03:12 → OR 09:41 → 3N 11:28 → INTOOBSV 11:28